=== PATIENT | male | born 1995 | race Caucasian/White ===

== ENCOUNTER → 2017-03-19 | Outpatient (CLI) | payer OTHER | LOC: RAD 11:49 | DX: S69.92XA Unspecified injury of left wrist, hand and finger(s), initial encounter (principal); M25.442 Effusion, left hand; X58.XXXA Exposure to other specified factors, initial encounter; Y93.89 Activity, other specified; Y92.89 Other specified places as the place of occurrence of the external cause; Y99.8 Other external cause status ==

== ENCOUNTER → 2022-09-04 | Day surgery (SDC) | payer OTHER ==
[~2022-09-04] VITALS: Ht 175.2 cm; Wt 61.2 kg
[~2022-09-04] MED LIST: FLONASE ALLERG9.9 ML NAS; OCUFLOX 5 ML5 ML OT; ZYRTEC-D TABLE1 EACH PO
[2022-09-04 07:45] VITALS: BP 131/82
[2022-09-04 09:05] VITALS: BP 105/56
[2022-09-04 09:20] VITALS: BP 114/68
[2022-09-04 09:35] VITALS: BP 124/87
== END | disposition home or self-care (01) ==
LOC: SDC 08-31 11:00
PROVIDERS: ATTEND Specialist
DX: H65.493 Other chronic nonsuppurative otitis media, bilateral (principal); H69.83 Other specified disorders of Eustachian tube, bilateral; J45.909 Unspecified asthma, uncomplicated; F41.9 Anxiety disorder, unspecified; F32.A Depression, unspecified